=== PATIENT | female | born 1995 | race Caucasian/White ===

== ENCOUNTER 2020-11-21 02:04 | Emergency (ER) | payer SELFPAY ==
[~2020-11-21] VITALS: Ht 162.6 cm; Wt 106.0 kg
[2020-11-21] MEDS ORDERED: LIDOCAINE HCL/PF 1% 10 MG/ML 5ML VIAL IJ ONE (03:15)
[2020-11-21] MEDS ORDERED: TETANUS, DIPHTHERIA, PERTUSSIS VAC/PF 0.5ML (>7YR OLD) IM ONE (03:15)
[2020-11-21] MEDS ORDERED: BACITRACIN ZINC OINT UDPKT TOP ONE (03:15)
[2020-11-21] MEDS ORDERED: AMOX-424 PO (04:44)
[2020-11-21] MEDS ORDERED: IBUP-2029 MT (04:44)
[2020-11-21 05:30] VITALS: BP 133/74
== END 2020-11-21 06:33 | disposition home or self-care (01) ==
LOC: ER 02:04
DX: S61.215A Laceration without foreign body of left ring finger without damage to nail, initial encounter (principal); Y04.1XXA Assault by human bite, initial encounter; Y93.89 Activity, other specified; Y92.89 Other specified places as the place of occurrence of the external cause; Y99.8 Other external cause status
CPT/HCPCS: 12001; 90471; 90715; 99283; J3490